=== PATIENT | female | born 1950 | race Two or more races ===

== ENCOUNTER 2023-10-08 08:25 | Emergency (ER) | payer OTHER ==
[~2023-10-08] VITALS: Ht 162.6 cm; Wt 54.4 kg
[2023-10-08] MEDS ORDERED: SIMV-46 PO (08:43)
[2023-10-08] MEDS ORDERED: PROP80CA59 PO (08:43)
[2023-10-08] MEDS ORDERED: DIGO125T PO (08:43)
[2023-10-08] MEDS ORDERED: ASPI81TA31 PO (08:43)
[2023-10-08] MEDS ORDERED: OMEG10006 PO (08:43)
[2023-10-08] MEDS ORDERED: AMLO10TA59 PO (08:43)
[2023-10-08] MEDS ORDERED: LEVO25TA9 PO (08:43)
[2023-10-08] MEDS ORDERED: LISI10TA29 PO (08:43)
[2023-10-08] MEDS ORDERED: HYDROMORPHONE 1 MG/1 ML DISP.SYRIN ONE ×2 (09:20→12:47)
[2023-10-08] MEDS ORDERED: ONDANSETRON 4 MG/2 ML VIAL ONE (09:20)
[2023-10-08 09:30] LABS: BASOPHILS % (AUTO) 0.3 % (0.0-2.0); EOSINOPHILS % (AUTO) 0.2 % (0.0-7.0); HEMATOCRIT 44.1 % (31.2-41.9); HEMOGLOBIN 14.5 g/dL (10.9-14.3); LYMPHOCYTES # (AUTO) 0.6 K/uL (0.8-4.8); LYMPHOCYTES % (AUTO) 4.7 % (20.5-51.5); MEAN CORPUSCULAR HEMOGLOBIN 31.6 uug (24.7-32.8); MEAN CORPUSCULAR HGB CONC 33 g/dL (32.3-35.6); MEAN CORPUSCULAR VOLUME 96.3 fL (75.5-95.3); MONOCYTES # (AUTO) 0.1 K/uL (0.1-1.30); MONOCYTES % (AUTO) 0.4 % (0.0-11.0); NEUTROPHILS # (AUTO) 12.7 K/uL (1.8-8.9); NEUTROPHILS % (AUTO) 94.4 % (38.5-71.5); PLATELET COUNT (AUTO) 173 K/uL (179-408); RED BLOOD CELL COUNT(AUTO) 4.58 MIL/uL (3.63-4.92); RED CELL DISTRIBUTION WIDTH 12.8 % (12.3-17.7); WHITE BLOOD COUNT (AUTO) 13.4 K/uL (3.8-11.8)
[2023-10-08] MEDS: ONDANSETRON 4 MG/2 ML VIAL IV ONE (09:30)
[2023-10-08] MEDS: IV NORMAL SALINE 500 ML BAG IV ONE (09:30)
[2023-10-08] MEDS: HYDROMORPHONE 1 MG/1 ML DISP.SYRIN IV ONE ×2 (09:30→12:54)
[2023-10-08 09:33] LABS: ALBUMIN 4.3 g/dL (3.4-5.0); BILIRUBIN,DIRECT 0.4 mg/dL (0.0-0.2); BILIRUBIN,TOTAL 1.6 mg/dL (0.2-1.0); CALCIUM 9.4 mg/dL (8.5-10.1); POTASSIUM 3.9 mmol/L (3.5-5.1); TOTAL PROTEIN, SERUM 8.1 g/dL (6.4-8.2)
[2023-10-08 09:41] LABS: DIFFERENTIAL COMMENT 1
[2023-10-08 09:45] LABS: LACTIC ACID 5.6 mmol/L (0.4-2.0)
[2023-10-08 10:09] LABS: *BILIRUBIN,URIN NEGATIVE (NEGATIVE); *BLOOD, URINE NEGATIVE (NEGATIVE); *CLARITY,URINE CLEAR (CLEAR); *COLOR,URINE LIGHT YELLOW (YELLOW); *KETONES,URINE NEGATIVE (NEGATIVE); *PROTEIN,URINE NEGATIVE (NEGATIVE); *UROBILINOGEN,URINE 0.2 E.U./dl (NORMAL); LEUKOCYTE ESTERASE ,URINE NEGATIVE (NEGATIVE); NITRITE, URINE NEGATIVE (NEGATIVE); PH,URINE 6.5 (5.0-8.0); UGLUCOSE NEGATIVE (NEGATIVE)
[2023-10-08] MEDS: IV NS 1000 ML 1,000 ML IV ONE ×2 (10:09→12:54)
[2023-10-08] MEDS ORDERED: CEFTRIAXONE /D5W 50ML IVPB **ER PYXIS IV ONE (10:38)
[2023-10-08] MEDS: CEFTRIAXONE 1 G in IV DEXTROSE 5% 50 ML IV ONE (10:43)
[2023-10-08] MEDS ORDERED: ENOXAPARIN SODIUM 60 MG/0.6 ML DISP.SYRIN SQ ONE (14:05)
[2023-10-08] MEDS: ENOXAPARIN SODIUM 60 MG/0.6 ML DISP.SYRIN SQ ONE (14:12)
[2023-10-08 15:01] VITALS: O2SAT 94
[2023-10-08] MEDS ORDERED: DILTIAZEM HCL 25 MG IV ONE ×2 (15:08→17:56)
[2023-10-08] MEDS: DILTIAZEM HCL 25 MG IV IV ONE ×2 (15:20→18:06)
[2023-10-08 18:06] VITALS: BP 110/72
== END 2023-10-08 18:23 | disposition admitted as inpatient to this hospital (09) ==
LOC: ER 08:25
DX: N20.1 Calculus of ureter (principal); E87.20 Acidosis, unspecified; I48.91 Unspecified atrial fibrillation; Z79.82 Long term (current) use of aspirin; Z79.899 Other long term (current) drug therapy; Z88.1 Allergy status to other antibiotic agents
CPT/HCPCS: 99291; 74176; 96365; 96375; 96361; 80076; 80048; 81003; 83690; 83735; 85025; 87040; 84484; 36415; 93005 ×2; 96376; 87086; 96372; 83605 ×3; J0696; J3490 ×2; J1650; J2405; J1170 ×2; J7040 ×2; A4606; A4663